=== PATIENT | female | born 1980 | race African-American/Black ===

== ENCOUNTER 2020-03-06 00:57 | Inpatient (IN) | payer SELFPAY ==
[~2020-03-06] VITALS: Ht 165.1 cm; Wt 98.4 kg
[2020-03-06] MEDS ORDERED: METHYLERGONOVINE MALEATE 0.2 MG/ML IM PRN (09:30)
[2020-03-06] MEDS ORDERED: CARBOPROST TROMETHAMINE 250 MCG/ML AMPUL IM PRN (09:30)
[2020-03-06] MEDS ORDERED: NALOXONE HCL 0.4 MG/ML 1ML VIAL IM PRN (09:30)
[2020-03-06] MEDS ORDERED: DEXT 5%/LR + PITOCIN 20UNITS/L 1,000 ML IV SCH ×2 (09:30→13:45)
[2020-03-06] MEDS ORDERED: LACTATED RINGERS 1,000 ML IV SCH (09:30)
[2020-03-06] MEDS ORDERED: MISOPROSTOL 100MCG TABLET VG SCH (09:30)
[2020-03-06 10:33] LABS: BASOPHILS % 0.2 % (0.0-2.0); EOSINOPHILS % 0.3 % (0.0-5.0); HEMATOCRIT. 33.1 % (36.0-48.0); HEMOGLOBIN. 10.9 g/dL (12.0-16.0); LYMPHOCYTES % 36.1 % (20.0-50.0); MEAN CORPUSCULAR HEMOGLOBIN 26.1 pg (28.0-32.0); MEAN CORPUSCULAR VOLUME 79.3 fL (81.0-99.0); MEAN PLATELET VOLUME 6.7 fl (7.4-10.4); MONOCYTES % 9.2 % (2.0-8.0); NEUTROPHILS % 54.2 % (40.0-76.0); PLATELET 284 x1000/uL (130-400); RED BLOOD CELL COUNT 4.17 mill/uL (4.2-5.4); RED CELL DISTRIBUTION WIDTH 15.6 % (11.6-14.6)
[2020-03-06 10:42] LABS: INR 0.9; PARTIAL THROMBOPLASTIN TIME 28.2 sec (23.4-31.0)
[2020-03-06 10:44] LABS: CLARITY URINE CLEAR (CLEAR); COLOR URINE YELLOW (YELLOW); KETONES URINE NEGATIVE (NEGATIVE); LEUKOCYTE ESTERASE URINE 3+ (NEGATIVE); NITRITE URINE NEGATIVE (NEGATIVE); OCCULT BLOOD URINE NEGATIVE (NEGATIVE); PH URINE 6.5 (4.5-8.0); PROTEIN URINE NEGATIVE (NEGATIVE); SPECIFIC GRAVITY URINE 1.011 (1.005-1.030); UROBILINOGEN URINE 0.2 E.U./dL (0.2-1.0)
[2020-03-06 11:00] LABS: *AMPHETAMINES SCREEN URINE NEGATIVE (NEGATIVE); *BARBITURATES SCREEN URINE NEGATIVE (NEGATIVE); *BENZODIAZEPINES SCREEN URINE NEGATIVE (NEGATIVE); *COCAINE SCREEN URINE NEGATIVE (NEGATIVE)
[2020-03-06 11:01] LABS: CANNABINOID URINE SCREEN NEGATIVE (NEGATIVE); METHADONE URINE SCREEN NEGATIVE (NEGATIVE); OPIATES URINE SCREEN NEGATIVE (NEGATIVE); PHENCYCLIDINE URINE SCREEN NEGATIVE (NEGATIVE)
[2020-03-06] MEDS ORDERED: FENTANYL CITRATE/PF 50MCG/ML 2ML VIAL ONE ×2 (11:56→13:12)
[2020-03-06] MEDS ORDERED: MORPHINE SULFATE/PF 1MG/ML 10ML AMP ONE ×2 (11:56→13:12)
[2020-03-06] MEDS ORDERED: HYDROMORPHONE HCL/PF 2MG/ML CPJ IV PRN (12:30)
[2020-03-06] MEDS ORDERED: BUTORPHANOL TARTRATE 2 MG/ML VIAL IM PRN (12:30)
[2020-03-06] MEDS ORDERED: ONDANSETRON HCL 4MG/2ML INJ IV PRN (12:30)
[2020-03-06] MEDS ORDERED: DIPHENHYDRAMINE 50MG/ML VIAL IV PRN (12:30)
[2020-03-06] MEDS ORDERED: LABETALOL 5MG/ML SYR 20 MG/4 ML SYRINGE IV PRN (12:30)
[2020-03-06] MEDS ORDERED: KETOROLAC 30MG/ML VIAL IV PRN ×2 (12:30→13:45)
[2020-03-06] MEDS ORDERED: MEPERIDINE HCL/PF 25MG/ML CPJ IV PRN (12:30)
[2020-03-06] MEDS ORDERED: SODIUM CHLORIDE 0.9% 10ML VIAL ONE (12:52)
[2020-03-06] MEDS ORDERED: CEFAZOLIN SODIUM 1000MG/VIAL ONE (12:52)
[2020-03-06] MEDS ORDERED: EPHEDRINE SULFATE 50MG/ML VIAL ONE (12:53)
[2020-03-06] MEDS ORDERED: IBUPROFEN 400MG TABLET PO PRN (13:45)
[2020-03-06] MEDS ORDERED: RHO(D) IMMUNE GLOBULIN 300 MCG/SYR IM PRN (13:45)
[2020-03-06 14:06] LABS: HEPATITIS B SURFACE ANTIGEN NEGATIVE
[2020-03-06 15:40] VITALS: BP 117/68
[2020-03-06 16:20] VITALS: BP 116/73
[2020-03-06 19:30] VITALS: BP 102/65
[2020-03-07] VITALS: BP 107/76
[2020-03-07 04:00] VITALS: BP 99/57
[2020-03-07] MEDS: FERROUS SULFATE 325MG TABLET PO SCH ×2 (07:30→09:30)
[2020-03-07 08:00] VITALS: BP 122/79
[2020-03-07 08:23] LABS: BASOPHILS % 0.3 % (0.0-2.0); EOSINOPHILS % 0.2 % (0.0-5.0); HEMOGLOBIN. 11.3 g/dL (12.0-16.0); LYMPHOCYTES % 19.3 % (20.0-50.0); MEAN CORPUSCULAR HEMOGLOBIN 26.8 pg (28.0-32.0); MEAN CORPUSCULAR VOLUME 78.6 fL (81.0-99.0); MEAN PLATELET VOLUME 6.5 fl (7.4-10.4); MONOCYTES % 8.1 % (2.0-8.0); NEUTROPHILS % 72.1 % (40.0-76.0); PLATELET 276 x1000/uL (130-400); RED BLOOD CELL COUNT 4.21 mill/uL (4.2-5.4); RED CELL DISTRIBUTION WIDTH 14.9 % (11.6-14.6)
[2020-03-07] MEDS: PRENATAL VIT/FE FUMARATE/FA TABLET PO SCH (09:00)
[2020-03-07] MEDS: IBUPROFEN 800MG TABLET PO PRN (15:16)
[2020-03-07 17:04] VITALS: BP 127/83
[2020-03-07 20:00] VITALS: BP 108/73
[2020-03-08] VITALS: BP 122/75
[2020-03-08] MEDS: BISACODYL 10MG SUPP PR PRN ×2 (00:32→09:33)
[2020-03-08] MEDS: IBUPROFEN 800MG TABLET PO PRN (06:20)
[2020-03-08 08:00] VITALS: BP 100/61
[2020-03-08] MEDS ORDERED: IBUP-2030 PO (08:18)
[2020-03-08] MEDS ORDERED: FERR325T23 PO (08:18)
[2020-03-08] MEDS: PRENATAL VIT/FE FUMARATE/FA TABLET PO SCH (09:33)
== END 2020-03-08 15:00 | disposition home or self-care (01) | DRG 540 ==
LOC: OBSVTOIN 00:57 → 8 EST LDRP 00:57 → 8EST 15:52
PROVIDERS: ADMIT Obstetrics & Gynecology; ATTEND Obstetrics & Gynecology
PROC: 10D00Z1 Extraction of Products of Conception, Low, Open Approach (ICD-10-PCS; principal; 2020-03-06)
DX: O34.211 Maternal care for low transverse scar from previous cesarean delivery (principal); O32.8XX0 Maternal care for other malpresentation of fetus, not applicable or unspecified; O99.62 Diseases of the digestive system complicating childbirth; Z20.828 Contact with and (suspected) exposure to other viral communicable diseases; O76 Abnormality in fetal heart rate and rhythm complicating labor and delivery; K66.0 Peritoneal adhesions (postprocedural) (postinfection); O24.429 Gestational diabetes mellitus in childbirth, unspecified control; Z3A.38 38 weeks gestation of pregnancy; Z37.0 Single live birth; Z90.49 Acquired absence of other specified parts of digestive tract
CPT/HCPCS: 36415; 76805; 76818; 80305; 81003; 82962; 85025; 86592; 86703; 86762; 86850; 86900; 86920; 87340; 87426; 88307; 99281; J0690; J2274; J2405; J2590; J3010; J3490; A4315